=== PATIENT | male | born 1940 | race Caucasian/White ===

== ENCOUNTER 2016-09-23 23:05 | Inpatient (IN) | payer MEDICARE, MEDICAID, OTHER ==
[~2016-09-23] VITALS: Ht 172.7 cm; Wt 80.7 kg
[~2016-09-23 23:05] MED LIST: AUGMENTIN875 MG PO; CORDARONE DPS200 MG PO; DELTASONE20 MG PO; DUONEB DPS3 ML IH; ECOTRIN81 MG PO; ELIQUIS5 MG PO; FEOSOL ELI220 MG/5 M PO; FLOMAX DPS0.4 MG PO; MAALOX DPS30 ML PO; MIRALAX PACKET17 GM PO; OCEAN NASAL MIS45 ML; OMNICEF DPS300 MG PO; PROSCAR DPS5 MG PO; ROBITUSSIN200 MG/10 PO; SENOKOT DPS30 ML PO; SURFAK DPS240 MG PO; TEARS NATURAL D15 ML OU; THERAPEUTIC MUL1 TAB PO; TYLENOL DPS325 MG PO; VITAMIN D1000 UNI1 PO; ZOCOR DPS40 MG PO; ZYRTEC DPS10 MG PO
--- NOTE | 2016-09-24 19:08 | ER ---
ADMIT: 09/24/2016 RM/LOC: 425 [facility] MR#: [id number] [address] [address] ISIDRO SERGIO [place] [address] Emergency Room Report SEX: M AGE: 76 : 1940 DATE: 09/23/2016 HISTORY OF PRESENT ILLNESS: The patient is a 76-year-old male, who was brought from [place] home for low-grade fever and increased shortness of breath and hypoxia. Allegedly, the patient has a history of COPD, CHF, aflutter, Parkinson and dementia, and the patient had low-grade fever and also they noticed that the patient feels tired today and is not walking around, and also the patient's O2 saturation from low 90s came to mid 80s per chart and also per paramedics. PHYSICAL EXAMINATION: In the ER, patient was afebrile, but was tachypneic and respiratory rate was 24. Patient became a little tachycardic with a heart rate of 105 and O2 saturation was mid 80s, which increased to 90%-93% on 2 L nasal cannula. LABORATORY AND IMAGING DATA: EKG was normal sinus rhythm and also chest x-ray comparing with April 2016 showed increased congestion bilaterally and also questionable multiple bilateral infiltration without any effusion. Cardiac enzymes are negative. D-dimer is negative. White BC is 12.6 with left shift. CK was also elevated at 1238. The rest of the lab work was noncontributory except that lactic acid was 1.6. The patient was started on antibiotic vancomycin and Zosyn. The patient received IV fluids for rhabdo, 0.5 L normal saline and another 0.5 L normal saline later on. The patient received a DuoNeb nebulizer and Solu-Medrol when he just came to the ER. ASSESSMENT AND PLAN: Family Medicine was consulted, the patient was admitted for: 1. Pneumonia. 2. Hypoxia. 3. Respiratory distress. 4. Rhabdomyolysis. 5. History of congestive heart failure. 6. Chronic obstructive pulmonary disease. Jong Rasheed MD/ lori JOB #: [id number] CC: Shawn Cardona MD, Attending Physician Shawn Cardona MD, Family Physician
--- NOTE | 2016-09-29 15:22 | HP ---
ADMIT: 09/24/2016 RM/LOC: 425 [facility] MR#: [id number] [address] [address] ISIDRO SERGIOGH[place]AM [place] [address] History and Physical SEX: M AGE: 76 : 1940 DATE OF SERVICE: CHIEF COMPLAINT: Fatigue, hypoxemia, shortness of breath, and low-grade fevers. HISTORY OF PRESENT ILLNESS: The patient is a pleasant 76-year-old male with a past medical history of pujxjzpx-ab-mkzekq dementia, who presents with 24 hour history of shortness of breath, decreased ambulation, and hypoxemia. His history is limited as there were no caregivers at the bedside during this provider's examination, but it was reported that the patient was found to be hypoxemic in the mid 80s to low 90s on rounds today. It was also noticed that he was ambulating less than normal and appeared to be more fatigued. The patient has minimal verbal communication but endorses that he still feels short of breath despite good oxygen saturations on 2 L per nasal cannula. Reviewing the med list again with the patient, he was started on influenza prophylaxis the day of presentation to suspect there are known contacts. There is no reported significant cough, sputum production, nasal congestion, nausea, vomiting, diarrhea, witnessed aspiration event, or increased edema. There is also no report of decreased urine output. Examining the patient this morning, he continues to endorse shortness of breath but denies any pain, including chest pain. PAST MEDICAL HISTORY: 1. Dementia, smhrzpqm-pu-sfvlvb debility, recorded as both Parkinson's and Alzheimer's in the chart. 2. COPD. 3. History of atrial flutter. 4. Benign prostatic hypertrophy. 5. Hyperlipidemia. 6. Generalized anxiety disorder. 7. Documentation of coronary artery disease and CHF, however, normal echocardiogram 4 months ago. No previous coronary artery disease procedures. PAST SURGICAL HISTORY: No known surgeries. MEDICATIONS: 1. Finasteride 5 mg one tablet p.o. daily. 2. Tamsulosin 0.4 mg one tablet p.o. daily. 3. Multivitamin 1 tablet p.o. daily. 4. Vitamin D3, 2000 International Units p.o. daily. 5. Acetaminophen 650 mg p.o. b.i.d. 6. Amiodarone 200 mg p.o. once daily. 7. Docusate 100 mg p.o. daily. 8. Eliquis 5 mg 1 tablet twice daily. 9. Ferrous sulfate 220 mg p.o. b.i.d. 10.DuoNeb t.i.d. inhaled. 11.Oseltamivir 75 mg p.o. once daily for 10 days, starting on 09/23. 12.MiraLAX 17 g p.o. daily. ADMIT: 09/24/2016 RM/LOC: 425 [facility] MR#: [id number] [address] [address] [place] [address] History and Physical SEX: M AGE: 76 : 1940 13.Mupirocin nasal spray 2 sprays each nostril 3 times daily. 14.Senna 10 mL p.o. b.i.d. 15.Acetaminophen 650 mg p.o. q.4 hours p.r.n. pain. 16.Maalox or Mylanta 10 mL q.6 hours p.r.n. indigestion. 17.Artificial Tears every 2 hours as needed for dry eyes. 18.Bisacodyl 10 mg suppository once daily per rectum as needed for constipation. ALLERGIES: NO KNOWN MEDICAL ALLERGIES. FAMILY HISTORY: Unable to obtain from the patient due to his dementia. SOCIAL HISTORY: The patient currently resides at the [facility] due to severe dementia. His son is the power of patent prosecution attorney and his daughter is also involved. He is not currently using alcohol, tobacco, herbs, supplements, or illicit drug use. REVIEW OF SYSTEMS: Review of systems was attempted but unable to be obtained due to the patient's severe dementia. Questions of shortness of breath appeared reproducible as the patient endorsed it and the patient was consistently reporting no chest pain. However, the remainder of the review of systems had marginal response. PHYSICAL EXAMINATION: VITAL SIGNS: 98.3, 97, 119/74, 18, 92% on 2 L per nasal cannula. GENERAL: A well-developed, well-nourished, white male, lying in bed, no acute distress, mildly anxious appearing. HEENT. Head is normocephalic and atraumatic. Pupils are equal, round, and reactive to light. Extraocular muscles intact. Mucous membranes are dry. HEART: Regular rate and rhythm without murmur, rub, or gallop. LUNGS: Severely-diminished in all lung jackson with poor air movement. No appreciable wheezing, rhonchi, or rales. The patient with mildly increased work of breathing on 2 L per nasal cannula. ABDOMEN: Soft, nontender, and nondistended. Bowel sounds are present. EXTREMITIES: Without cyanosis, clubbing, or peripheral edema. SKIN: Intact without visible rashes or ulcers. PSYCH: The patient is mildly anxious appearing. DIAGNOSTIC DATA: WBC 12.6, hemoglobin 13.0, platelets 220. Creatinine 0.9, potassium 4.0, magnesium 2.4. Procalcitonin 0.50. Lactic acid 1.6. INR 1.15. D-dimer negative. Troponin negative. CK 1238 with normal index. ProBNP 305. Urinalysis is normal. Blood and urine culture is pending. Chest x-ray with diffuse infiltrate including the entire left lung and the right base. No significant effusion appreciated. Old read pending. EKG normal sinus rhythm at 93 beats per minute. ADMIT: 09/24/2016 RM/LOC: 425 [facility] MR#: [id number] [address] [address] [place]GIO [place] [facility] [address] History and Physical SEX: M AGE: 76 : 1940 ASSESSMENT AND PLAN: 1. Shortness of breath, hypoxemia, and increased fatigue secondary to suspected viral etiology, however, hospital-acquired pneumonia not excluded. 2. Elevated creatine kinase. 3. Dementia with atqvpdgi-md-ksisfs disability. 4. Mild protein calorie malnutrition. PLAN: We will complete the initial workup by collecting a rapid influenza, respiratory viral panel, and arterial blood gas. Current suspicion for influenza pneumonitis, especially as this patient was started on prophylaxis the day of presentation, but we will continue antibiotics for HCAP for now. We will also be aware that the patient is taking amiodarone which can cause lung injury. We will continue IV fluids for rehydration and trend creatine kinase to resolution. Blood and urine cultures were collected and are currently pending. Low suspicion for cardiogenic source of hypoxemia as the patient had an echocardiogram completed 4 months ago with left ventricular ejection fraction of 55%-60% and normal diastolic function. We will continue the patient's home diet of pureed/nectar thick and respect his wishes to be DNR/DNI with no artificial measures. Frances Ventura MD Resident / Shawn Cardona MD / bennettl JOB #: [id number] CC: Shawn Cardona, Attending Physician Shawn Cardona, Family Physician
--- NOTE | 2016-10-01 11:08 | CO ---
ADMIT: 09/24/2016 RM/LOC: 425 [facility] MR#: [id number] [address] [address] [place] [address] Consultation SEX: M AGE: 76 : 1940 DATE OF CONSULTATION: 09/29/2016 ATTENDING PHYSICIAN: Shawn Cardona CONSULTING PHYSICIAN: Sadaf Garay APRN TIME IN: 0850 hours. TIME OUT: 0925 hours. REASON FOR CONSULTATION: Supportive care consultation was requested by Dr. Cardona for discussion of goals for care. HISTORY PRESENT ILLNESS: Mr. Felix is a 76-year-old male with history of yroptknh-zs-prxqoy dementia, [facility] [place]. He was admitted on September 24 with shortness of breath and decreasing oxygen saturations. He was found to have pneumonia. Speech Therapy had been following him and their evaluation revealed significant aspiration risk, therefore n.p.o. status was recommended. The family of the patient did decide over the weekend that they would not want the patient to have a feeding tube and that they would like pleasure eating in the time ahead. Due to the patient's complexities, supportive care consultation was requested to discuss goals and options. In terms of advanced directives, the patient is a do not resuscitate/do not intubate status. The patient does have healthcare kgjah-pq-zkjxjpyi, who is his son, Mark Felix, whose phone #[phone] and [phone]. We do not have a living will or POLST form on file. The patient's daughter, Angie, is also involved with his care. Symptomatically, the patient denies pain, but he is tearful during my discussion. He does have a history of generalized anxiety. In discussion with the patient's son, this is common for him to be tearful and slightly anxious at times. Overall, he appears weak and debilitated. PAST MEDICAL HISTORY: Dementia moderate to severe, COPD, atrial flutter, BPH, hyperlipidemia, generalized anxiety disorder, history of coronary artery disease, and heart failure. ALLERGIES: THE PATIENT HAS NO KNOWN MEDICATION ALLERGIES. CURRENT MEDICATIONS: Please see the patient's MAR for specific routes and dosages. His current medications are as follows. 1. Zestril. 2. Vancomycin. 3. Prednisone. 4. Levaquin. 5. Flomax. 6. Senokot. ADMIT: 09/24/2016 RM/LOC: 425 [facility] MR#: [id number] [address] [address] [place] [address] Consultation SEX: M AGE: 76 : 1940 7. MiraLax. 8. Eliquis. 9. Colace. 10.Cordarone. 11.Tylenol. 12.Vitamin D. 13.Proscar. 14.Feosol. 15.DuoNeb. 16.Dulcolax. 17.Natural Tears. 18.Maalox. 19.Tylenol. 20.Zosyn. SOCIAL HISTORY: The patient is living at the [facility]. He does not use alcohol, tobacco, or illicit drugs. FAMILY HISTORY: Unable to obtain. FUNCTIONAL REVIEW: Prior to his hospital stay, he was living at [facility]. He does need assistance with ADLs. His palliative performance scale prior to admission sounds to be around 40% to 50%. Currently, he is mostly sitting. He is mainly assistance for ADLs. His intake is reduced. He is confused. His current palliative performance scale is around 40%. REVIEW OF SYSTEMS: A 10-point review of systems was attempted. However, due to the patient's mentation, this is unable to be obtained. PHYSICAL EXAMINATION: GENERAL: The patient is examined in the bed. He is in no acute distress. Vital signs temperature 96.0, pulse 88, respirations 16, blood pressure 120/70, and oxygen 95% on 1 L per nasal cannula. HEENT. Head is normocephalic. Pupils are equal, round, and reactive with a diameter of 3 mm bilaterally. Oral mucosa pink and moist with fair dentition. NECK: Supple. RESPIRATORY: Respirations are equal and nonlabored at rest. LUNGS: Coarse throughout. CARDIOVASCULAR: Rate and rhythm regular without murmurs, rubs, or gallops. Trace bilateral lower extremity edema noted. GASTROINTESTINAL: Soft and nontender. Bowel sounds are positive. He does not appear to have had a bowel movement since admission. MUSCULOSKELETAL: Generalized weakness. No obvious joint deformities. INTEGUMENTARY: Skin turgor is fair. No rashes or wounds noted. NEUROLOGIC: Disoriented x3. He will follow simple commands. PSYCHIATRIC: Tearful at times. He is not agitated currently. DIAGNOSTIC DATA: Sodium 143, potassium 4.4, BUN 16, creatinine 0.7, total ADMIT: 09/24/2016 RM/LOC: 425 [facility] MR#: [id number] [address] [place] [id number] [place] [address] Consultation SEX: M AGE: 76 : 1940 protein 6.6, and albumin 3.0. WBCs 16.8, hemoglobin 15.2, hematocrit 47.6, and platelets 298. IMPRESSION: 1. Debility. 2. Dementia. 3. Dysphagia. 4. Moderate protein-calorie malnutrition. 5. Fatigue. 6. Constipation. 7. Malaise. 8. Anxiety. 9. Chronic obstructive pulmonary disease. 10.Pneumonia. 11.Coronary artery disease. 12.Respiratory failure. 13.Palliative care. 14.The patient is a DNR/DNI. PLAN OF TREATMENT: 1. I was able to reach the patient's ofedj-cj-bencksmy, Mark, via telephone. The patient is obviously confused per baseline and unable to participate in medical decision making. We reviewed the patient's overall status and goals for the time ahead. The patient's POA understands that the patient is at high risk even with a modified diet for aspiration and ongoing recurrent pneumonia. The patient's POA is very clear that the patient would not want a feeding tube and that pleasure eating sets his goals. We did discuss the hospice philosophy and benefit at length. The patient's POA understands that the patient will continue to have these pneumonias in the time ahead and that it is unrealistic to let the patient pleasure eat and request recurrent rehospitalizations and treatments for the pneumonia that we know will occur with eating. At this point, the kiuai-xa-uelcfoxv is leaning toward maximizing the patient during his current stay and then discharging him back to the [facility] with hospice care. He does need to discuss the plan with his siblings, which will likely occur later today or tonight. I did give the patient's POA my phone number to contact me today if he is able to get a decision before the end of the day, however, if I do not hear from him and I will have the supportive care and follow up with him tomorrow morning to solidify the plan. I am unfortunately unavailable in the days ahead. At ADMIT: 09/24/2016 RM/LOC: 425 [facility] MR#: [id number] [address] [facility] [address] [place] [address] [place] [address] Consultation SEX: M AGE: 76 : 1940 this point, it does seem like they will likely transition back to [facility] hosp[facility] care unless the ncydr-sq-bgcrazge's siblings object to this plan. 2. I did review code status and the patient is a vh-hkr-inprrgvliom/do-not- intubate status. 3. We will continue to follow along in the care of this patient and discuss goals for care in the time ahead. We would like to thank Dr. Cardona for the invitation to participate in this patient's care. Total consultation time was 35 minutes from 0850 hours to 0925 hours with 20 minutes from 0855 hours to 0915 hours spent wnje-sx-zyyt with the patient and as well as the patient's aufwq-ny-tstgtpiq discussing goals for care and providing counseling and coordination of care. Sadaf Garay APRN/ lori JOB #: [id number] CC: Shawn Cardona, Attending Physician Shawn Cardona, Family Physician
[2016-10-01] MEDS ORDERED: COLACE-DPS100 MG PO (13:29)
[2016-10-01] MEDS ORDERED: LEVAQUIN DPS750 MG PO (13:38)
[2016-10-01] MEDS ORDERED: PROBIOTIC1 EAC1 PO (13:39)
[2016-10-01] MEDS ORDERED: CLINDAMYCIN HC300 MG PO (13:39)
[2016-10-01] MEDS ORDERED: DELTASONE DPS20 MG PO (13:40)
[2016-10-01] MEDS ORDERED: ZESTRIL DPS10 MG PO (13:40)
[2016-10-01] MEDS ORDERED: DULCOLAX-DPS10 MG PR (13:41)
[2016-10-01] MEDS ORDERED: TEARS NATURAL D15 ML OU (13:41)
[2016-10-01] MEDS ORDERED: BACTROBAN NASAL1 GM NS (13:43)
--- NOTE | 2016-10-07 10:44 | DS ---
ADMIT: 09/24/2016 RM/LOC: 425 [facility] MR#: [id number] [address] [address] [place] [address] General Discharge Summary SEX: M AGE: 76 : 1940 ADMISSION DATE: 09/24/2016 DISCHARGE DATE: 09/30/2016 ADMISSION DIAGNOSIS: Acute hypoxic respiratory failure. DISCHARGE DIAGNOSIS: Acute hypoxic respiratory failure. SECONDARY DIAGNOSES: 1. Atypical pneumonia. 2. Debility. 3. Dementia. 4. Moderate protein-calorie malnutrition. 5. Constipation. 6. Malaise. 7. Generalized anxiety disorder. 8. Chronic obstructive pulmonary disease. 9. Coronary artery disease. 10.Benign prostatic hypertrophy. 11.Myositis. CONSULTATION: Supportive Care. PROCEDURE: Modified barium study, 09/26/2016. HISTORY OF PRESENT ILLNESS: Sergio presented to the emergency room after 24 hours history of observed shortness of breath, hypoxemia, and decreased ambulation. He was requiring 2 L per nasal cannula to maintain saturations. There was no report of any recent cough, sputum production, upper respiratory infection symptoms, nausea, vomiting, diarrhea, increased peripheral edema or any witnessed aspiration events. Upon presentation, he was found to have a white blood cell count of 12.6, procalcitonin of 0.50, and CK of 1238. Chest x-ray showed diffuse infiltrate including entire left lung and the right base. No significant pleural effusions. HOSPITAL COURSE: He was admitted and treated with the sepsis protocol with broad-spectrum antibiotics, vancomycin and Zosyn. He was also started on empiric Tamiflu and IV Solu-Medrol. His elevated creatine kinase was trended and returned to baseline with rehydration. On hospital day #2, the patient was deescalated to oral Levaquin and started on a steroid taper. On hospital day #3, the patient underwent a modified barium study which he failed with all textures and viscosities. At that time, his fjevm-rv-sqzcacad was contacted. With the help of Supportive Care, it was determined that the patient would continue with pureed honey-thickened liquids for pleasure feeds only. His medications were transitioned to IV as we were able to. His hypoxemia was considered to be most likely secondary to an atypical pneumonia. On hospital day #7, the patient was discharged back to the [facility] with hospice per family's wishes. MEDICATIONS ON DISCHARGE: ADMIT: 09/24/2016 RM/LOC: 425 [facility] MR#: [id number] [address] [address] [facility] [place] [address] General Discharge Summary SEX: M AGE: 76 : 1940 1. Colace 100 mg p.o. daily. 2. Cordarone 200 mg p.o. daily. 3. Deltasone taper as instructed. 4. Eliquis 5 mg p.o. b.i.d. 5. Ferrous sulfate 220 mg p.o. b.i.d. 6. Flomax 0.4 mg p.o. nightly. 7. MiraLax 17 g p.o. daily. 8. Proscar 5 mg p.o. daily. 9. Senokot 10 mL p.o. b.i.d. 10.Multivitamin one tab p.o. daily. 11.Tylenol 650 mg p.o. b.i.d. 12.Vitamin D 2000 international units p.o. daily. 13. p.o. daily. 14.DuoNeb 3 mL inhaled t.i.d. 15.Levaquin 750 mg for a total of 14 days. 16.Dulcolax suppository 10 mg per rectum daily p.r.n. constipation. 17.Clindamycin 600 mg p.o. t.i.d. for 10 days. 18.Probiotic p.o. daily. Medication changes this hospitalization; the patient will complete a course of antibiotics with Levaquin and clindamycin and will taper off other steroid as instructed. He is maintained on his other home medications by mouth at this time. DIET: Pureed with honey-thickened liquids for pleasure only. ACTIVITY: As tolerated. GOALS OF CARE: Goals of care were addressed with the family via Supportive Care and they have electively refrained from a feeding tube as this would not be as per his father's wishes. He will also continue to be DNR and DNI. CONDITION ON DISCHARGE: Guarded. DISPOSITION: To [facility] with hospice care. FOLLOWUP: Continue care per the patient's hospice agency. Frances Ventura MD Resident / Shawn Cardona MD / bennettl JOB #: [id number] CC: Shawn Cardona MD, Attending Physician Shawn Cardona MD, Family Physician
== END 2016-09-30 11:18 | disposition short-term general hospital (02) | DRG 189 ==
LOC: ER 23:05 → 4PCU 09-24 01:30
PROVIDERS: ADMIT Family Medicine
DX: J96.01 Acute respiratory failure with hypoxia (principal); J18.9 Pneumonia, unspecified organism; Z51.5 Encounter for palliative care; E44.0 Moderate protein-calorie malnutrition; I50.9 Heart failure, unspecified; G20 Parkinson's disease; G30.9 Alzheimer's disease, unspecified; F02.80 Dementia in other diseases classified elsewhere, unspecified severity, without behavioral disturbance, psychotic disturbance, mood disturbance, and anxiety; J44.0 Chronic obstructive pulmonary disease with (acute) lower respiratory infection; E44.1 Mild protein-calorie malnutrition; M60.9 Myositis, unspecified; K59.00 Constipation, unspecified; I25.10 Atherosclerotic heart disease of native coronary artery without angina pectoris; N40.0 Benign prostatic hyperplasia without lower urinary tract symptoms; E78.5 Hyperlipidemia, unspecified; F41.1 Generalized anxiety disorder; Z79.01 Long term (current) use of anticoagulants; Z66 Do not resuscitate